=== PATIENT | male | born 1940 | race Caucasian/White ===

== ENCOUNTER → 2016-06-04 | Outpatient (CLI) | payer MEDICARE ==
[~2016-06-04] MED LIST: ACET-2321 PO; ALLO300T2 PO; AMIO200T2 PO; AMLO5TAB2 PO; ASCO500T9 PO; ASPI-914 PO; CYAN10006 SQ; DIGO125T88 PO; DOCU-168 PO; FERR324T4 PO; HYDR-4246 PO; METO25TA3 PO; SALINE FLUSH 10ml SYRINGE IVF ONE; WARF2.5T73 PO; [UNRECOGNIZED DRUG - CODE] IV
== END ==
LOC: NWCC 09:28 → EDSTATUS 09:30
PROVIDERS: ATTEND Internal Medicine
DX: T87.89 Other complications of amputation stump (principal); Y83.8 Other surgical procedures as the cause of abnormal reaction of the patient, or of later complication, without mention of misadventure at the time of the procedure; I87.2 Venous insufficiency (chronic) (peripheral); L97.222 Non-pressure chronic ulcer of left calf with fat layer exposed; L97.212 Non-pressure chronic ulcer of right calf with fat layer exposed; R60.1 Generalized edema; G90.09 Other idiopathic peripheral autonomic neuropathy
CPT/HCPCS: 11042; 11045; G0463

== ENCOUNTER → 2016-06-15 | Outpatient (CLI) | payer MEDICARE ==
[~2016-06-15] MED LIST changes: -SALINE FLUSH 10ml SYRINGE IVF ONE
== END ==
LOC: EDSTATUS 08:30 → NWCC 08:34
PROVIDERS: ATTEND Internal Medicine
DX: T87.89 Other complications of amputation stump (principal); Y83.8 Other surgical procedures as the cause of abnormal reaction of the patient, or of later complication, without mention of misadventure at the time of the procedure; I87.2 Venous insufficiency (chronic) (peripheral); L97.222 Non-pressure chronic ulcer of left calf with fat layer exposed; L97.212 Non-pressure chronic ulcer of right calf with fat layer exposed; R60.1 Generalized edema; G90.09 Other idiopathic peripheral autonomic neuropathy; B37.89 Other sites of candidiasis; L53.9 Erythematous condition, unspecified
CPT/HCPCS: 11042; A6021; G0463

== ENCOUNTER → 2016-06-29 | Outpatient (CLI) | payer MEDICARE ==
[~2016-06-29] MED LIST changes: +SALINE FLUSH 10ml SYRINGE IVF ONE
== END ==
LOC: NWCC 09:16
PROVIDERS: ATTEND Internal Medicine
DX: T87.89 Other complications of amputation stump (principal); I87.2 Venous insufficiency (chronic) (peripheral); L97.229 Non-pressure chronic ulcer of left calf with unspecified severity; L97.212 Non-pressure chronic ulcer of right calf with fat layer exposed; R60.1 Generalized edema; Z89.422 Acquired absence of other left toe(s); Y83.8 Other surgical procedures as the cause of abnormal reaction of the patient, or of later complication, without mention of misadventure at the time of the procedure; B37.89 Other sites of candidiasis; G90.09 Other idiopathic peripheral autonomic neuropathy
CPT/HCPCS: 11042; 29581; A6021; G0463